=== PATIENT | male | born 1950 | race Caucasian/White ===

== ENCOUNTER 2025-01-27 07:41 | Observation (INO) ==
--- NOTE | 2025-01-01 11:33 | PAT Medication Instructions ---
Medication Instructions Date of Service January 01, 2025 Home Medications allopurinol 300 mg tablet 300 mg PO QAM cholecalciferol (vitamin D3) 125 mcg (5,000 unit) tablet (Vitamin D3) 125 mcg PO QAM icosapent ethyl 1 gram capsule (Vascepa) 1 g PO BID losartan 100 mg tablet 100 mg PO QAM magnesium chloride 71.5 mg (magnesium chloride) tablet,delayed release (Slow- Mag) 71.5 mg PO HS metformin 500 mg tablet 500 mg PO BID pravastatin 40 mg tablet 40 mg PO QAM ASK your prescriber and surgeon icosapent ethyl 1 gram capsule (Vascepa) 1 g PO BID DO NOT take the morning of surgery cholecalciferol (vitamin D3) 125 mcg (5,000 unit) tablet (Vitamin D3) 125 mcg PO QAM losartan 100 mg tablet 100 mg PO QAM metformin 500 mg tablet 500 mg PO BID Take morning of surgery With a small sip of water, OTHERWISE NOTHING TO EAT OR DRINK AFTER MIDNIGHT: allopurinol 300 mg tablet 300 mg PO QAM pravastatin 40 mg tablet 40 mg PO QAM Take evening before surgery magnesium chloride 71.5 mg (magnesium chloride) tablet,delayed release (Slow- Mag) 71.5 mg PO HS metformin 500 mg tablet 500 mg PO BID Other Notes If you have any questions please call us at [phone] or [phone] or [phone] or [phone]
--- NOTE | 2025-01-06 13:32 | Anesthesiology Consultation ---
Date of Service January 06, 2025 Assessment & Plan (1) Encounter for pre-operative examination: - check BSG am DOS. Outpatient joint assessment: Patient is currently scheduled for inpatient pathway. If re-evaluated and patient/surgeon requests outpatient pathway, patient is not an acceptable candidate for outpatient joint program from anesthesia standpoint pending surgeon's office assessment of pt motivation/support/completion of same day joint program preop requirements. Chart Review Chart Review: Acceptable Risk for Surgery and Patient NOT seen in Pre Admission Testing History Surgery Operation Date: 01/27/25 10:35 Proposed Procedures p Left Reversed Total Shoulder Arthroplasty, Biceps Tenodesis - Andrea Wilkinson MD Height/Weight Height: 5 ft 11 in Weight: 125.4 kg Allergies Allergy/AdvReac Type Severity Reaction Status Date / Time No Known Allergies Allergy Verified 12/25/24 09:59 Medications Home Medications Medication Instructions Recorded Confirmed Last Taken allopurinol 300 mg tablet 300 mg PO QAM 12/25/24 12/25/24 Unknown cholecalciferol (vitamin D3) 125 125 mcg PO QAM 12/25/24 12/25/24 Unknown mcg (5,000 unit) tablet (Vitamin D3) icosapent ethyl 1 gram capsule 1 g PO BID 12/25/24 12/25/24 Unknown (Vascepa) losartan 100 mg tablet 100 mg PO QAM 12/25/24 12/25/24 Unknown magnesium chloride 71.5 mg 71.5 mg PO HS 12/25/24 12/25/24 Unknown (magnesium chloride) tablet,delayed release (Slow-Mag) metformin 500 mg tablet 500 mg PO BID 12/25/24 12/25/24 Unknown pravastatin 40 mg tablet 40 mg PO QAM 12/25/24 12/25/24 Unknown aspirin 81 mg tablet 81 mg PO PRN Pain 01/06/25 Unknown ibuprofen 100 mg tablet 200 mg PO Q6H PRN Pain 01/06/25 01/06/25 Unknown Additional Notes: Patient was instructed and it was written on provided medication instructions to contact surgeon regarding aspirin and ibuprofen/Advil. He verbalized underst anding and denied additional questions, concerns or additional medications. Dr. Christie confirmed it is up to prescriber and surgeon regarding icosapent ethyl. Past Medical History Medical History (Updated 01/06/25 @ 13:38 by Ibis M. Onink, PA-C) Diabetes mellitus, type 2 NIDDM History of hypertension controlled, stable per pt Hx of gout Hx of hyperlipidemia Hypertriglyceridemia Incisional hernia "at area of cholecystectomy" Patient denies h/o stroke, seizures, heart attack, heart failure, blood clot s/DVTs or blood transfusions. Exercise / Class Metabolic Activity II 4-5 Yardwork/Stairs/Walk up hill (denies chest discomfort or shortness of breath with one flight of stairs) Past Surgical History Surgical History Hx of cardiac cath 1996, while in the [employer], no stents Hx of cholecystectomy (2018) open procedure "which is now herniated" Hx of nasal polypectomy "in his 20's, done in dr's office" [place] teeth extracted Past Anesthesia History No Hx of Anesthesia Complications and No Family Hx of Anesthesia Complications History of PONV No Hx of PONV and No Hx of Motion Sickness Social History Smoking Status: Never smoker Do You Dip or Chew Tobacco: No Hx Alcohol Use: No Hx Substance Use: No substance use type: does not use Review of Systems Patient denies chest pain, shortness of breath, dyspnea on exertion, snoring, witnessed apneas, reflux, fever, chills, cough, wheezing, or palpitations. Physical Exam Vital Signs Vitals BP 144/86 P 105 (Pt states that he was having increased left shoulder pain which significantly improved when he moved shoulder into lap-notes this is how he rests at home, states he is also nervous in clinical settings/regarding surgery today) TEMP 97.5 SP02 96% on RA RESP 17 Physical Patient resting comfortably in chair in no acute distress, alert and oriented, responding appropriately throughout visit Full cervical extension range of motion without pain TMD < 3 finger breadths Mallampati Score 3 Dentition: partial upper and lower dentures, denies chipped or loose teeth, caps/crowns, implants or bridges Lungs: normal respiratory effort. Good air movement, clear throughout to auscultation, no adventitious breath sounds Cardiac: regular rate and rhythm, no murmurs noted Carotid arteries: negative bruit bilat Lab Results Anesthesia Preop Results Results Anesthesia Widget: WBC 9.18 K/ul (4.8-10.8) 01/06/25 Hgb 14.5 g/dl (14.0-18.0) 01/06/25 Hct 43.4 % (42.0-52.0) 01/06/25 Plt 224 K/uL (130-400) 01/06/25 Na 139 mmol/L (136-145) 01/06/25 K 4.3 mmol/L (3.5-5.1) 01/06/25 Cl 104 mmol/L (98-107) 01/06/25 CO2 28 mmol/L (21-32) 01/06/25 BUN 16 mg/dl (6-23) 01/06/25 Creat 0.95 mg/dl (0.6-1.4) 01/06/25 Glucose Level 110 mg/dl (70-99(Fasting)) H 01/06/25 PT 10.4 Seconds (9.0-12.0) 01/06/25 PTT 25 Seconds (21-31) 01/06/25 INR 1.0 (0.9-1.1) 01/06/25 HA1c 6.5 % (4.5-5.6) H 01/06/25 Urine Color Yellow 01/06/25 Urine Appearance Clear (Clear) 01/06/25 Urine pH 5.0 (4.5-7.5) 01/06/25 Urine Specific [place] 1.024 (1.000-1.030) 01/06/25 Urine Protein 1+ (Negative) H 01/06/25 Urine Glucose (UA) Negative (Negative) 01/06/25 Urine Ketones Trace (Negative) H 01/06/25 Urine Blood Negative (Negative) 01/06/25 Urine Nitrite Negative (Negative) 01/06/25 Urine Bilirubin Negative (Negative) 01/06/25 Urine Urobilinogen Negative (Negative) 01/06/25 Urine Leukocyte Esterase Trace (Negative) H 01/06/25 Urine WBC (Auto) 0-5 /hpf (0-5) 01/06/25 Urine RBC (Auto) 0-2 /hpf (0-2) 01/06/25 Urine Hyaline Casts (Auto) 0-2 /lpf (0-2) 01/06/25 Urine Epithelial Cells (Auto) 0-2 /hpf (0-2) 01/06/25 Urine Bacteria (Auto) None Seen (None Seen) 01/06/25 Blood Type B Positive 01/06/25 Antibody Screen NEGATIVE 01/06/25 Testing Electrocardiogram Date: 01/06/25 Sinus tachycardia, rate 104 bpm Chest X-Ray Date: 01/06/25 1. No acute findings. 2. Mild elevation of the right hemidiaphragm.
--- NOTE | 2025-01-25 19:43 | History & Physical Report ---
Date of Service January 25, 2025 Assessment & Plan (1) Osteoarthritis of left shoulder region: Plan: Severe end-stage glenohumeral osteoarthritis with partial tearing rotator cuff biceps instability biceps tendinopathy. Best option is to proceed with reverse total shoulder replacement biceps tenodesis. Osteoarthritis type: primary Qualified Code(s): M19.012 - Primary osteoarthritis, left shoulder (2) Rotator cuff tear, non-traumatic: Rotator cuff tear extent: incomplete Laterality: left Qualified Code(s): M75.112 - Incomplete rotator cuff tear or rupture of left shoulder, not specified as traumatic (3) Biceps tendinopathy: Laterality: left Qualified Code(s): M67.922 - Unspecified disorder of synovium and tendon, left upper arm History of Present Illness Chief Complaint: Chronic left shoulder pain Primary Care Provider: Sumi France MD Chronic progressive left shoulder pain and stiffness related to osteoarthritis and rotator cuff tendinopathy. Patient denies headaches, sweats, fevers, chills, double vision, blurred vision, cough, sore throat, dysphagia, chest pain, sob, wheezing, n/v/d/c, numbness, tingling, fatigue, urinary symptoms, mood disorders. ROS positive for heart catheterization Allergies Allergy/AdvReac Type Severity Reaction Status Date / Time No Known Allergies Allergy Verified 12/25/24 09:59 Home Medications Medication Instructions Recorded Confirmed Type allopurinol 300 mg tablet 300 mg PO QAM 12/25/24 12/25/24 History cholecalciferol (vitamin D3) 125 125 mcg PO QAM 12/25/24 12/25/24 History mcg (5,000 unit) tablet (Vitamin D3) icosapent ethyl 1 gram capsule 1 g PO BID 12/25/24 12/25/24 History (Vascepa) losartan 100 mg tablet 100 mg PO QAM 12/25/24 12/25/24 History magnesium chloride 71.5 mg 71.5 mg PO HS 12/25/24 12/25/24 History (magnesium chloride) tablet,delayed release (Slow-Mag) metformin 500 mg tablet 500 mg PO BID 12/25/24 12/25/24 History pravastatin 40 mg tablet 40 mg PO QAM 12/25/24 12/25/24 History aspirin 81 mg tablet 81 mg PO PRN Pain 01/06/25 History ibuprofen 100 mg tablet 200 mg PO Q6H PRN Pain 01/06/25 01/06/25 History Past Med/Surg History Problem List (Updated 01/25/25 @ 19:42 by Andrea Wilkinson MD) Biceps tendinopathy Rotator cuff tear, non-traumatic Osteoarthritis of left shoulder region Encounter for pre-operative examination Medical History Incisional hernia "at area of cholecystectomy" Diabetes mellitus, type 2 NIDDM History of hypertension controlled, stable per pt Hypertriglyceridemia Hx of hyperlipidemia Hx of gout Surgical History Hx of cholecystectomy (2018) open procedure "which is now herniated" Hx of nasal polypectomy "in his 20's, done in dr's office" [place] teeth extracted Hx of cardiac cath 1996, while in the [employer], no stents Social History Smoking Status: Never smoker Second Hand Exposure: Yes (hx, none for 50 years); Do You Dip or Chew Tobacco: No; Tobacco Cessation Education Requested by Patient: No Hx Alcohol Use: No Hx Substance Use: No Preferred Language: [place] Communication Ability: Effective Tractor Expert Required: No Beliefs That Will Affect Care: None Current Living Situation: Alone Other Information That Helps Us Care for You: No Feels Safe at Home: Yes Safety Concerns: Feels Safe At This Time Assistive Devices: Glasses and Other Assistive Devices Comment: upper and lower partials Review of Systems All systems reviewed & are unremarkable except as noted in HPI & below Physical Exam Constitutional: WD/WN, vitals as above Respiratory: normal respiratory effort; no respiratory distress Cardiovascular: Rate/Rhythm: regular rate and regular rhythm Musculoskeletal: Left shoulder tenderness anterior glenoid and biceps glenohumeral crepitation with range of motion. Positive Speed, Yergason, Neer test. Painful range of motion. Range of motion 130 degrees flexion passively but only 40 degrees actively. 40 degrees active abduction and 90 degrees of passive abduction. Strength external rotation 4+/5 abduction 3+ to 4-/5, flexion 3+4-/5 distal neurocirculatory exam otherwise intact. Skin: no rashes, warm and dry Neurologic: normal touch/pain/proprioception Psychiatric: A+Ox3, euthymic affect Results & Data Diagnostic Findings MRI and x-rays demonstrate severe end-stage glenohumeral osteoarthritis with MRI demonstrating biceps dislocation through split type and complete tear of the subscapularis with subscapularis tendinopathy and partial tearing of supraspinatus with some tendinopathy as well. [id number] glenohumeral joint with concentric type A wear pattern.
[~2025-01-27 07:41] MED LIST: BUPIVACAINE 0.5 % 5 MG/1 ML PF 10ML VIAL ONE
[2025-01-27] MEDS: GABAPENTIN 300 MG CAP PO SCH (08:44)
[2025-01-27] MEDS: METOCLOPRAMIDE HCL 10 MG TABLET PO SCH (08:44)
[2025-01-27] MEDS: LR 15ML/HR IV SCH (08:44)
[2025-01-27] MEDS: CeleBREX 200 MG CAP PO SCH (08:44)
[2025-01-27] MEDS: ACETAMINOPHEN 500 MG TAB PO SCH ×2 (08:44→16:48)
[2025-01-27] MEDS: FAMOTIDINE 20 MG TAB PO SCH (08:44)
[2025-01-27] MEDS: LR 60ML/HR IV SCH (08:45)
[2025-01-27] MEDS ORDERED: ATROPINE SULFATE 0.1 MG/ML 10ML SYR IV PRN (09:07)
[2025-01-27] MEDS ORDERED: HYDROmorphone INJ 2 MG/ML SYR/VIAL IV PRN (09:07)
[2025-01-27] MEDS ORDERED: HYDROmorphone INJ 1 MG/ML SYRINGE IV PRN (09:07)
[2025-01-27] MEDS ORDERED: ONDANSETRON INJ 2 MG/ML 2 ML VIAL IV PRN ×2 (09:07→14:47)
[2025-01-27] MEDS ORDERED: ePHEDrine sulfate 50 MG/ML AMP IV PRN (09:07)
[2025-01-27] MEDS ORDERED: fentaNYL citrate PF 100 MCG/2 ML VIAL IV PRN (09:07)
--- NOTE | 2025-01-27 09:09 | Anesthesiology Consultation ---
Date of Service January 27, 2025 Assessment & Plan Chart Review Chart Review: Acceptable Risk for Surgery Consults Requested none ASA ASA3 Proposed Anesthesia Anesthesia Type: General Regional Regional Laterality: Left Site: Interscalene History Surgery Operation Date: 01/27/25 09:50 Proposed Procedures p Left Reverse Total Shoulder Arthroplasty, Biceps Tenodesis - Andrea Wilkinson MD Height/Weight Height: 5 ft 11 in Weight: 123 kg Allergies Allergy/AdvReac Type Severity Reaction Status Date / Time No Known Allergies Allergy Verified 01/27/25 08:15 Medications Home Medications Medication Instructions Recorded Confirmed Last Taken allopurinol 300 mg tablet 300 mg PO QAM 12/25/24 01/27/25 01/25/25 cholecalciferol (vitamin D3) 125 125 mcg PO QAM 12/25/24 01/27/25 01/25/25 mcg (5,000 unit) tablet (Vitamin D3) icosapent ethyl 1 gram capsule 1 g PO BID 12/25/24 01/27/25 01/25/25 (Vascepa) losartan 100 mg tablet 100 mg PO QAM 12/25/24 01/27/25 01/25/25 magnesium chloride 71.5 mg 71.5 mg PO HS 12/25/24 01/27/25 01/25/25 (magnesium chloride) tablet,delayed release (Slow-Mag) metformin 500 mg tablet 500 mg PO BID 12/25/24 01/27/25 01/25/25 pravastatin 40 mg tablet 40 mg PO QAM 12/25/24 01/27/25 01/25/25 aspirin 81 mg tablet 81 mg PO PRN Pain 01/06/25 01/20/25 ibuprofen 100 mg tablet 200 mg PO Q6H PRN Pain 01/06/25 01/27/25 01/20/25 Active Medications Generic Name Dose Route Start Last Admin Trade Name Freq PRN Reason Stop Dose Admin Acetaminophen 1,000 mg 01/27/25 06:00 01/27/25 08:44 Acetaminophen 500 Mg Tab PO 01/27/25 18:00 1,000 mg PREOP TIM Administration Celecoxib 200 mg 01/27/25 06:00 01/27/25 08:44 Celebrex 200 Mg Cap PO 01/27/25 18:00 200 mg PREOP TIM Administration Famotidine 20 mg 01/27/25 06:00 01/27/25 08:44 Famotidine 20 Mg Tab PO 01/27/25 18:00 20 mg PREOP TIM Administration Gabapentin 300 mg 01/27/25 06:00 01/27/25 08:44 Gabapentin 300 Mg Cap PO 01/27/25 18:00 300 mg PREOP TIM Administration Lactated Ringer's 1,000 mls @ 15 mls/hr 01/27/25 06:00 01/27/25 08:44 Lr IV 01/28/25 05:59 15 mls/hr .Q24H TIM Administration Lactated Ringer's 1,000 mls @ 60 mls/hr 01/27/25 06:00 01/27/25 08:45 Lr IV 01/27/25 22:39 Not Given .[id number] TIM Metoclopramide HCl 10 mg 01/27/25 06:00 01/27/25 08:44 Metoclopramide Hcl 10 Mg Tablet PO 01/27/25 18:00 10 mg PREOP TIM Administration NPO Date Last Intake of Fluids: 01/26/25 Time Last Intake of Fluids: 22:00 Date Last Intake of Solids: 01/26/25 Time Last Intake of Solids: 22:00 Past Medical History Medical History Incisional hernia "at area of cholecystectomy" Diabetes mellitus, type 2 NIDDM History of hypertension controlled, stable per pt Hypertriglyceridemia Hx of hyperlipidemia Hx of gout Exercise / Class Metabolic Activity III < 4 Walking/Shop/Light housework Past Surgical History Surgical History Hx of cholecystectomy (2018) open procedure "which is now herniated" Hx of nasal polypectomy "in his 20's, done in dr's office" [place] teeth extracted Hx of cardiac cath 1996, while in the [employer], no stents Past Anesthesia History No Hx of Anesthesia Complications History of PONV No Hx of PONV Social History Smoking Status: Never smoker Do You Dip or Chew Tobacco: No Hx Alcohol Use: No Hx Substance Use: No substance use type: does not use Physical Exam Vital Signs Last Vital Signs Temp 36.6 C 01/27/25 07:38 Pulse 112 H 01/27/25 07:38 Resp 20 01/27/25 07:38 BP 165/100 H 01/27/25 07:38 Pulse Ox 94 01/27/25 07:38 O2 Del Method Room Air 01/27/25 07:38 Constitutional + obese; no acute distress ENMT Mouth: + TMJ abnormality and + dentures (Partial denture out ) Thyromental Distance: > or= 3.5 Finger Breadths Mallampati Class: II Neck + short neck and + thick neck Supraclavicular adipose tissue bilaterally Respiratory normal respiratory effort Auscultation: lungs clear to auscultation bilaterally and + diminished lung sounds (Distant ) Cardiovascular Rate/Rhythm: regular rate and regular rhythm Neurologic moves all extremities Psychiatric Orientation: alert and oriented x 3 Testing Laboratory Results 01/27/25 08:46 POC Glucose 127 H Electrocardiogram Date: 01/06/25 Sinus tachycardia, rate 104 bpm Chest X-Ray Date: 01/06/25 1. No acute findings. 2. Mild elevation of the right hemidiaphragm.
[2025-01-27] MEDS ORDERED: PROPOFOL IV EMULSION 10 MG/ML 20 ML VIAL IV ONE (09:17)
[2025-01-27] MEDS ORDERED: ONDANSETRON INJ 2 MG/ML 2 ML VIAL ONE (09:17)
[2025-01-27] MEDS ORDERED: LIDOCAINE 2% 2 ML VIAL/AMP(20MG/ML) INFIL ONE (09:17)
[2025-01-27] MEDS ORDERED: ROCURONIUM BROMIDE 10 MG/ML 5 ML VIAL IV ONE (09:17)
[2025-01-27] MEDS ORDERED: MIDAZOLAM HCL 1 MG/ML 2ML VIAL ONE (09:18)
[2025-01-27] MEDS ORDERED: fentaNYL citrate PF 100 MCG/2 ML VIAL ONE ×2 (09:18→13:41)
[2025-01-27] MEDS ORDERED: VASOPRESSIN 20 UNIT/ML VIAL ONE (09:26)
--- NOTE | 2025-01-27 10:39 | History & Physical Bridge Note ---
Date of Service January 27, 2025 History & Physical Bridge Note I have examined the patient, reviewed the History & Physical and in the interval since the performance of the History & Physical I have noted the following changes of clinical significance: no changes noted
[2025-01-27] MEDS: TRANEXAMIC ACID 1,000 MG **IV Pre-op IV SCH (10:41)
[2025-01-27] MEDS: ceFAZolin 3000MG 3,000 MG/72.5 ML BAG IV SCH (11:08)
[2025-01-27] MEDS ORDERED: METOPROLOL TARTRATE 1 MG/ML VIAL IV ONE (11:39)
[2025-01-27] MEDS ORDERED: PHENYLEPHRINE 100MCG/ML 5ML SYR ONE (11:58)
[2025-01-27] MEDS ORDERED: SUGAMMADEX SODIUM 200 MG/2 ML VIAL IV ONE ×2 (12:47→12:58)
[2025-01-27] MEDS: TRANEXAMIC ACID 1,000 MG **IV Intra-op IV SCH (13:18)
--- NOTE | 2025-01-27 13:45 | Operative Report ---
Post Operative Report Pre & Post Diagnosis Operation Date: 01/27/25 09:50 Pre-Op Diagnosis: Left Shoulder glenohumeral joint osteoarthritis, partial tear subscapularis with dislocation biceps tendon and rotator cuff tendinopathy. Post-Op Diagnosis: Left shoulder glenohumeral joint osteoarthritis, partial tear subscapularis with dislocation biceps tendon and rotator cuff tendinopathy. I identified the patient and participated in the time-out.: Yes Procedure Operation Date: 01/27/25 09:50 Actual Procedures p Left Reverse Total Shoulder Arthroplasty, Biceps Tenodesis(Left) - Andrea Wilkinson MD Surgeon Andrea Wilkinson MD Pattern Wheel Maker Diego MARTINEZ Estimated Blood Loss 100 Findings Consistent with Post-Op Diagnosis Specimens Humeral head cut Drains 2 Hemovac Anesthesia Type General Regional Disposition Disposition: Recovery Room Indications 74-year-old male with chronic progressive osteoarthritis in his left shoulder glenohumeral joint [id number] grade 4 osteoarthritis with concentric type A wear pattern with tearing of the upper subscapularis tendon with dislocation of the biceps tendon and some generalized rotator cuff tendinopathy Description of Procedure Patient was placed placed under regional block and general anesthetic. The left upper extremity had a towel roll placed on the medial border of the scapula and translated to the side of the bed so it could be manipulated off of the bed as necessary. A foam headrest was placed and protective eyewear was placed. Lower extremities were well-padded. Patient was positioned in a beach chair position approximately 50 degrees. Shoulder exam demonstrated moderate obesity. Patient had significant abdominal obesity. The left shoulder had crepitation and restricted range of motion consistent with glenohumeral osteoarthritis. Range of motion 130 degrees flexion, 90 degrees abduction, 40 degrees external and internal rotation. The left upper extremity was prepped and draped in sterile fashion. A deltopectoral approach was performed with a longitudinal incision in a deltopectoral interval. The skin was incised sharply and the subcutaneous flaps were elevated. The cephalic vein was dissected out and retracted laterally with the deltoid. The clavipectoral fascia was divided at the lateral margin of the conjoined tendon and extended up to the CA ligament. A self-omid ining retractor was placed. Biceps findings demonstrated marked hemorrhagic biceps tenosynovitis and dislocated biceps tendon throughout subscapularis tendon tear upper subscapularis.. Biceps tendon was tenodesed to the pectoralis with whipstitch and [id number] #2 FiberWire sutures. The chronic tenosynovitis was resected and the proximal biceps resected up to the groove.. The circumflex vessels were tied off with silk ties and divided laterally. The subscapularis muscle fibers were at the level of the circumflex vessels dissection was taken down to the capsule and a Kitner elevator was used to release the inferior fibers of the capsule protecting the axillary nerve inferiorly. A blunt Hohmann retractors were placed between the inferior located axillary nerve and the capsule. This was verified with a tug test. The rotator was opened up and extended down to the glenoid. The subscapularis was taken down with a sub-periosteal peel and then subperiosteally along the inferior capsule exposing the inferior humeral osteophytes. These demonstrated moderately large osteophytes from posterior through the inferior through lateral and osteophytes in the bicipital groove and lesser tuberosity area.. The osteophytes were resected with an artist chisel and rongeur. The humeral head findings demonstrated multiple subchondral cystic changes grade 4 osteoarthritis exposed bone on the humeral head. After the osteophytes were resected humeral head was retracted posterior to the glenoid with a Fukuda retractor. The glenoid findings demonstrated grade 4 eburnated bone with a large anterior- inferior osteophyte on the glenoid. The labrum was resected and the biceps tendon resected. A 360 degree release of the subscapularis was performed. Appropriate releases were performed about the glenoid. Subperiosteal release with electrocautery on the glenoid anterior and inferior and also utilizing a small Moss elevator to perform that release including the posterior and inferior capsule released with a Moss elevator.. Upon completion of the releases the humeral head was reexposed with retractors. I released the supraspinatus and resected the supraspinatus tendon leaving the infraspinatus and teres minor intact. The centering awl was used followed by the sequential broaches up to a 5B long ascend flex stem from [employer]. The cut protector was placed and then the humerus was retracted posterior to the glenoid using a Tornier type retractor a sharp Hohmann and anteriorly a Bankart retractor. Glenoid was fully exposed well. The glenoid was sized for a 29 baseplate. The 29 guide was placed and 10 degrees inferior tilt and the drill hole was made the reamer was used and the central hole was widened for the post. After irrigation and placing small amount of bone graft in the superior cystic area with bone graft harvested from the humeral head the 29 mm aequalis standard post baseplate was impacted into position with good press-fit. This was transf ixed with anterior and posterior compression screws and a superior and inferior locking screws. There was excellent fixation. The fan reamer for the 42 mm centered glenoid sphere was utilized and after irrigating out all bone debris and drying the glenoid the 42/29 centered sphere was impacted into position and the security screw was tightened. Implant was stable on testing. Attention was then taken back to the humerus and the cut protector was taken off the +0 high offset trial tray was placed and the trial reversed flex inserts were placed and the +9 was the appropriate fit. The trial was then removed and the canal irrigated and 3 drill holes were made along the lateral surface of the lesser tuberosity spanning the distance of the subscapularis attachment and 3 transosseous #5 FiberWire sutures were placed for repair of the subscapularis. The final implant was assembled which was the 5B long ascend flex stem assembled to the +0 high offset reverse tray and the 42/+9 mm reversed flex polyethylene insert. This was impacted into the humerus with good press-fit. This was reduced to the glenoid sphere. The shoulder was taken through range of motion and stability was assessed and the shoulder was stable. There was no shuck. after copious irrigation the subscapularis was repaired with the #5 FiberWire sutures using Ajith-Mark Anthony suture technique and lateral row soft tissue repair with #2 FiberWire [id number] sutures. The pectoralis was repaired with saozpp-hu-ynnay #2 FiberWire passing the suture again through the biceps tendon to reinforce the tenodesis. Range of motion was assessed demonstrating 135 degrees of flexion 90 degrees abduction and 50 degrees external rotation and 90 degrees internal rotation without any tension on repair. 3-minute Betadine soak was performed. The wound was then copiously irrigated and 2 Hemovac drains were placed brought out laterally. The deltopectoral interval was repaired with momaoy-yp-qwvmo #1 Vicryl sutures and the subcutaneous tissues were closed into 2-0 Vicryl sutures and skin closed with amanda and a Silverlon dressing was applied and a shoulder immobilizer. The patient tolerated the procedure well. Diego MARTINEZ my physician visitor information assistant assisted in the procedure with arm positioning soft tissue retraction instrument management suture management and performed the subcutaneous and skin closure dressings and shoulder immobilizer application and will participate in the postop care the patient. I attest to the content of the Intraoperative Record and any orders documented therein. Any exceptions are noted below.
--- NOTE | 2025-01-27 14:13 | XRay Report ---
XR shoulder LT min 2V routine CLINICAL HISTORY: Post shoulder surgery COMPARISON: None FINDINGS: Left shoulder prosthesis shows no hardware complication. There is expected soft tissue gas . Skin amanda and postoperative drain are present. IMPRESSION: Unremarkable postoperative exam. ACT 112: Negative or not required by law. Electronically signed by: Jose Armando Steiner M.D. 01/27/2025 2:12 PM
[2025-01-27] MEDS ORDERED: ALUMINUM/MAGNESIUM SUSP 30 ML UDC PO PRN (14:47)
[2025-01-27] MEDS ORDERED: METOCLOPRAMIDE HCL INJ 5 MG/ML 2 ML VIAL IV PRN (14:47)
[2025-01-27] MEDS ORDERED: KETOROLAC TROMETHAMINE 15 MG/ML VIAL IV PRN (14:47)
[2025-01-27] MEDS ORDERED: MAGNESIUM HYDROXIDE SUSP 30 ML UDC PO PRN (14:47)
[2025-01-27] MEDS ORDERED: HYDROmorphone INJ 0.5 MG/0.5 ML SYR IV PRN (14:47)
[2025-01-27] MEDS ORDERED: NALOXONE HCL 0.4 MG/1 ML VIAL/CARP IV PRN (14:47)
[2025-01-27] MEDS ORDERED: bisacodyL 10 MG SUPP PR PRN (14:47)
[2025-01-27] MEDS ORDERED: oxyCODONE HCL IR 5 MG TAB (IMMEDIATE RELEASE) PO PRN (14:47)
[2025-01-27] MEDS ORDERED: PHARMACY GLYCEMIC MGMT CONSULT PRN (14:47)
[2025-01-27] MEDS ORDERED: diphenhydrAMINE Capsule 25 MG CAP PO PRN (14:47)
[2025-01-27] MEDS ORDERED: TAMSULOSIN HCL 0.4 MG CAP PO PRN (14:47)
--- NOTE | 2025-01-27 14:57 | Anesthesiology Progress Note ---
Date of Service January 27, 2025 Anesthesia Post Procedure Vital Signs Vital Signs: Temp Pulse Pulse Resp BP Pulse Ox O2 Del Method 01/27/25 14:54 36.5 C 105 H 18 118/83 93 Nasal Cannula 01/27/25 14:35 108 H 20 125/93 94 Nasal Cannula 01/27/25 14:25 37.1 C 106 H 19 127/84 92 Nasal Cannula 01/27/25 14:20 107 H 20 122/91 91 Room Air 01/27/25 14:10 104 H 20 126/90 94 Oxymask 01/27/25 14:00 102 H 19 130/89 94 Oxymask 01/27/25 13:54 36.3 C L 104 H 17 133/91 91 Oxymask 01/27/25 07:38 36.6 C 112 H 20 165/100 H 94 Room Air O2 Flow Rate 01/27/25 14:54 2 01/27/25 14:35 2 01/27/25 14:25 2 01/27/25 14:20 0 01/27/25 14:10 4 01/27/25 14:00 4 01/27/25 13:54 4 01/27/25 07:38 Transfer of Care Handoff Completed per policy Notes Mental Status: alert / awake / arousable Patient Amnestic to Procedure: Yes Nausea / Vomiting: adequately controlled Pain: adequately controlled Airway Patency, RR, SpO2: stable & adequate BP & HR: stable & adequate Hydration State: stable & adequate Neuraxial Anesthesia: was administered and sensory block is resolving Anesthetic Complications: no major complications apparent and Pt Satisfied with anesthetic care Notes: Left arm - block in full effect
[2025-01-27] MEDS: BUPIVACAINE LIPOSOME 1.3% 133 MG/10 ML VIAL ONE (14:59)
[2025-01-27] MEDS: SODIUM CHLORIDE 0.9% 1,000 ML IV SCH (15:02)
--- NOTE | 2025-01-27 15:10 | Pharmacy Report ---
Pharmacy Glycemic Short Note 2 - Date of Service January 27, 2025 - Glycemic Short BSG Results (Last 24 hours): 01/27/25 01/27/25 08:46 13:57 POC Glucose 127 H 128 H OUTPATIENT ANTIDIABETIC REGIMEN: * Metformin 500 mg BID * A1c 6.5% 01/06/25 ASSESSMENT: * Patient admitted s/p left reverse should arthroplasty, pre-op BSG 127 mg/dL, post-op 128 mg/dL * Will hold on basal for now, begin weight stress 1 (adjusted body weight) novolog parameters * Dex 10 mg IV scheduled for AM tomorrow- parameters may need tightened at that time PLAN FOR INPATIENT GLYCEMIC CONTROL: * Hold outpatient oral diabetes medications * Basal insulin * hold for now * Bolus insulin * NovoLog per scale ACHS or Q6hrs while NPO * Goal Range: Low 110 mg/dL - High 140 mg/dL * Correction Factor: 45 mg/dL/unit * Nutritional / Prandial insulin per carb ratio of 1 unit per 15 grams CHO consumed
--- NOTE | 2025-01-27 15:11 | Hospitalist Consultation ---
Date of Consultation January 27, 2025 Assessment & Plan (1) Tachycardia: (2) History of hypertension: (3) Diabetes mellitus, type 2: (4) Hx of hyperlipidemia: (5) Hx of gout: Plan Mat is a 74M with a PMHx of gout, DMT2, HTN, and HLD who presents for elective surgery with Dr. Wilkinson. Hospital Medicine consulted for medical management. #Tachycardia This is mild and has been persistent. Sounds regular. Preop xray with ST in December. Denies palpitations. Will add TSH to AM labs #HTN Hold losartan - pending AM labs #DM Home meds: Metformin - HELD continue SSI #Shoulder Surgery S/p Left reverse total shoulder arthroplasty with Dr. Wilkinson 01/27 pain control /abx/ dvt proh/dispo planning per primary team Requiring oxygen post op - encourage IS, wean O2 as able, baseline is room air AM CBC and BMP #Gout - continue allopurinol #HLD - continue statin Thank you for allowing us to participate in the care of this patient, please reach out with any questions or concerns. Medicine will continue to follow. Supervising Physician Co-Signing Physician Notes Attending Attestation & Consult Note: Pt seen/examined, chart reviewed, care plan d/w MICHELLE Washburn. I agree w/ the bruce components of her consult documentation. 74yo male with h/o HTN, T2DM, hyperlipidemia, gout, and chronic OA of left shoulder who who presented today for elective left reverse total shoulder replacement by Dr Wilkinson. I saw him post-op on the ortho floor. Resting comfortably. He finally was able to void about 400cc of urine this afternoon. Voices concerns about his living situation - lives alone in [place] and does not have family readily available to help him. Asks about rehab post-discharge. PMH/PSH/allergies/meds/sochx - reviewed VSS except tachycardic, HR 100-110 gen - History of Present Illness Reason for Consultation: medical management Requesting Physician: Dr. Wilkinson Attending Physician: Andrea Wilkinson MD History of Present Illness Mta is a 74M with a PMHx of gout, DMT2, HTn, and HLD who presents for elective surgery with Dr. Wilkinson. Seen post operatively in room 304. Feeling tired and sore. Has some tingling down both arms. not passing gas yet. reports he is trying to "work up the courage to pee" denies O2 use at home, no cpap does not take baby aspirin daily Allergies Allergy/AdvReac Type Severity Reaction Status Date / Time No Known Allergies Allergy Verified 01/27/25 08:15 Home Medications Medication Instructions Recorded Confirmed Type allopurinol 300 mg tablet 300 mg PO QAM 12/25/24 01/27/25 History cholecalciferol (vitamin D3) 125 125 mcg PO QAM 12/25/24 01/27/25 History mcg (5,000 unit) tablet (Vitamin D3) icosapent ethyl 1 gram capsule 1 g PO BID 12/25/24 01/27/25 History (Vascepa) losartan 100 mg tablet 100 mg PO QAM 12/25/24 01/27/25 History magnesium chloride 71.5 mg 71.5 mg PO HS 12/25/24 01/27/25 History (magnesium chloride) tablet,delayed release (Slow-Mag) metformin 500 mg tablet 500 mg PO BID 12/25/24 01/27/25 History pravastatin 40 mg tablet 40 mg PO QAM 12/25/24 01/27/25 History aspirin 81 mg tablet 81 mg PO PRN Pain 01/06/25 History ibuprofen 100 mg tablet 200 mg PO Q6H PRN Pain 01/06/25 01/27/25 History acetaminophen 500 mg tablet 1,000 mg (2 x 500 mg) PO Q8H #90 01/27/25 Rx (Tylenol Extra Strength) tabs aspirin 81 mg tablet,delayed 81 mg PO BID #60 tabs 01/27/25 Rx release cefadroxil 500 mg capsule 500 mg PO Q12H 14 days #28 caps 01/27/25 Rx celecoxib 200 mg capsule (Celebrex) 200 mg PO Q12H #60 caps 01/27/25 Rx oxycodone 5 mg tablet 5 mg PO Q4H PRN pain #20 tabs 01/27/25 Rx Patient History Medical History Incisional hernia "at area of cholecystectomy" Diabetes mellitus, type 2 NIDDM History of hypertension controlled, stable per pt Hypertriglyceridemia Hx of hyperlipidemia Hx of gout Surgical History Hx of cholecystectomy (2018) open procedure "which is now herniated" Hx of nasal polypectomy "in his 20's, done in 's office" Geraldine teeth extracted Hx of cardiac cath 1996, while in the [employer], no stents Social History Smoking Status: Never smoker Second Hand Exposure: Yes (hx, none for 50 years); Do You Dip or Chew Tobacco: No; Tobacco Cessation Education Requested by Patient: No Hx Alcohol Use: No Hx Substance Use: No Preferred Language: Lao Communication Ability: Effective Mental Health Case Manager Required: No Beliefs That Will Affect Care: None Current Living Situation: Alone Other Information That Helps Us Care for You: No Feels Safe at Home: Yes Safety Concerns: Feels Safe At This Time Assistive Devices: Glasses and Other Assistive Devices Comment: upper and lower partials Review of Systems Review of Systems: All systems reviewed & are unremarkable except as noted in Subjective Physical Exam Physical Exam: General: NAD, VS as above Resp: normal respiratory effort, lungs diminished - on 2L NC 93% CV: tachycardic but regular, no murmur, Abd: normal bowel sounds, non tender, no hepatosplenomegaly Extremities: left sling in place, able to wiggle finger, skin is warm Neuro: A&O x3, Skin: intact, no lesions noted Results & Data Results & Data Vital Signs (Past 12 Hours) Vital Signs Temp Pulse Pulse Resp BP Pulse Ox O2 Del Method 01/27/25 14:54 97.7 F 105 H 18 118/83 93 Nasal Cannula 01/27/25 14:35 108 H 20 125/93 94 Nasal Cannula 01/27/25 14:25 98.8 F 106 H 19 127/84 92 Nasal Cannula 01/27/25 14:20 107 H 20 122/91 91 Room Air 01/27/25 14:10 104 H 20 126/90 94 Oxymask 01/27/25 14:00 102 H 19 130/89 94 Oxymask 01/27/25 13:54 97.3 F L 104 H 17 133/91 91 Oxymask 01/27/25 07:38 97.9 F 112 H 20 165/100 H 94 Room Air O2 Flow Rate 01/27/25 14:54 2 01/27/25 14:35 2 01/27/25 14:25 2 01/27/25 14:20 0 01/27/25 14:10 4 01/27/25 14:00 4 01/27/25 13:54 4 01/27/25 07:38 Laboratory Results POC glucose reviewed PG Care Time/CCT Total # of Minutes Spent Total Time Spent with Patient: Total time spent is greater than 50% in coordination of care (as documented) at patient's floor/unit and/or counseling patient: Coding Level of Care Code 53798 IN/OBS CONSULT LVL 3,45M Diagnoses Tachycardia R00.0 History of hypertension Z86.79 Diabetes mellitus, type 2 E11.9 Hx of hyperlipidemia Z86.39 Hx of gout Z87.39
[2025-01-27] MEDS ORDERED: GLUCOSE 10 TAB/TUBE PO PRN (15:15)
[2025-01-27] MEDS ORDERED: DEXTROSE 50% 50 ML SYRINGE IV PRN (15:15)
[2025-01-27] MEDS ORDERED: CARBOHYDRATES FOR HYPOGLYCEMIA PO PRN (15:15)
[2025-01-27] MEDS ORDERED: GLUCAGON FOR INJ 1 MG VIAL SQ PRN (15:15)
[2025-01-27] MEDS ORDERED: GLUCOSE 40% GEL 15 GM TUBE PO PRN (15:15)
[2025-01-27] MEDS ORDERED: KETOCONAZOLE 2% CR 15 GM TUBE EXT PRN (16:35)
[2025-01-27] MEDS: INSULIN ASPART PER UNIT CHARGE SC SCH (16:47)
[2025-01-27] MEDS: SENNA 8.6 MG TAB PO SCH (20:11)
[2025-01-27] MEDS: ceFAZolin 2000MG 2,000 MG/15 ML SYR IV SCH (20:11)
[2025-01-27] MEDS: DOCUSATE SODIUM 100 MG CAP PO SCH (20:11)
[2025-01-27] MEDS: COUGH DROP (SUGAR FREE) LOZ 24 LOZ/1 BOX BUCCAL ONE ×2 (20:11)
[2025-01-27] MEDS: MAGNESIUM CHLORIDE W/CALCIUM 64MG DELAYED REL TAB PO SCH (20:12)
[2025-01-27] MEDS: ASPIRIN 81 MG ECTAB PO SCH (20:12)
[2025-01-27] MEDS: TRANEXAMIC ACID / 0.7% NACL 1,000 MG/100 ML BAG IV SCH (20:23)
[2025-01-27] MEDS ORDERED: metFORMIN HCL 500 MG TAB PO SCH (21:00)
[2025-01-27] MEDS ORDERED: ICOSAPENT ETHYL 1 GM PO SCH (21:00)
[2025-01-28 06:11] LABS: Basophils # (auto) 0.05 K/uL (0.00-0.20); Basophils % (auto) 0.4 %; Eosinophils # (auto) 0.09 K/uL (0.00-0.50); Eosinophils % (auto) 0.7 %; Hematocrit (blood only) 41.2 % (42.0-52.0); Hemoglobin 13.8 g/dl (14.0-18.0); Immature Granulocytes # (auto) 0.06 K/uL (0.01-0.20); Immature Granulocytes % (auto) 0.5 %; Lymphocytes # (auto) 1.83 K/uL (1.20-3.40); Lymphocytes % (auto) 15.1 %; Mean Corpuscular Hgb Conc 33.5 g/dL (32.0-36.0); Mean Corpuscular Volume 86.6 fL (80.0-100.0); Mean Platelet Volume 9.9 fL (9.4-12.4); Monocytes # (auto) 1.09 K/uL (0.11-0.59); Neutrophils # (auto) 8.97 K/uL (1.40-6.50); Neutrophils % (auto) 74.3 %; Platelet Count 200 K/uL (130-400); RDW Standard Deviation 50.4 fL (36.4-46.3); Red Blood Count 4.76 M/uL (4.70-6.10); White Blood Count 12.09 K/ul (4.8-10.8)
[2025-01-28 06:26] LABS: BUN Creatinine Ratio 14.4 (10-20); Calcium 8.8 mg/dl (8.6-10.3); Creatinine Clr Calc Pharmacy 81.9 ml/min; Potassium 4.1 mmol/L (3.5-5.1)
[2025-01-28 06:40] LABS: Thyroid Stimulating Hormone 0.614 uIu/ml (0.300-4.500)
[2025-01-28 07:38] VITALS: BP 110/73; PULSE 98; RESP 16; TEMP 97.9
[2025-01-28] MEDS: dexAMETHasone 10 MG in SYRINGE 0 ML IV SCH (08:02)
[2025-01-28] MEDS: MULTIVITAMIN TAB PO SCH (08:02)
[2025-01-28] MEDS: allopurinoL 300 MG TAB PO SCH (08:02)
[2025-01-28] MEDS: PRAVASTATIN SOD 40 MG TAB PO SCH (08:02)
[2025-01-28] MEDS: CHOLECALCIFEROL 125 MCG (5,000 UNITS) TAB PO SCH (08:02)
[2025-01-28] MEDS: LANTUS PER UNIT CHARGE SC ONE (08:13)
[2025-01-28] MEDS: LOSARTAN POTASSIUM 50 MG TAB PO SCH (08:18)
[2025-01-28 08:46] VITALS: O2SAT 94
--- NOTE | 2025-01-28 09:02 | Orthopedic Progress Note ---
Date of Service January 28, 2025 Assessment & Plan (1) Osteoarthritis of left shoulder region: Plan: Postop day 1 reverse total shoulder replacement biceps tenodesis. Patient doing well. Tachycardia decreasing labs are stable. Patient wants to consider rehab hospital but may require another hospital day stay for that. Patient has appearance of slightly having more effort to take breaths which could be related to his abdominal obesity in addition to nerve block residual effect but does not appear to be affecting his O2 sat currently. If medically cleared and patient able to go to rehab could potentially be discharged later today. 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 Best option is to proceed with reverse total shoulder replacement biceps tenodesis. (2) Rotator cuff tear, non-traumatic: (3) Biceps tendinopathy: Admission and Anticipated Discharge Date Admission Date: January 27, 2025 Subjective Patient feels well not having any pain. Review of Systems Review of Systems: No shortness of breath, no chest pain. Physical Exam Musculoskeletal: Shoulder exam demonstrates dressing is dry and intact no bleeding at all and drainage minimal from Hemovac and distal motor exam intact and circulation normal. Results & Data Vital Signs (Past 12 Hours) Vital Signs Temp Pulse Resp BP Pulse Ox O2 Del Method 01/28/25 07:36 36.6 C 98 H 16 110/73 94 Room Air 01/28/25 03:37 36.8 C 104 H 18 125/74 93 Room Air 01/27/25 22:32 36.4 C L 108 H 18 114/75 93 Room Air Laboratory Results Hemoglobin 13.8, hematocrit 41.2, BUN 15 creatinine 1.04 glucose 137 Diagnostic Findings Well aligned reverse shoulder replacement (1) Osteoarthritis of left shoulder region Osteoarthritis type: primary Qualified Code(s): M19.012 - Primary osteoarthritis, left shoulder (2) Rotator cuff tear, non-traumatic Rotator cuff tear extent: incomplete Laterality: left Qualified Code(s): M75.112 - Incomplete rotator cuff tear or rupture of left shoulder, not specified as traumatic (3) Biceps tendinopathy Laterality: left Qualified Code(s): M67.922 - Unspecified disorder of synovium and tendon, left upper arm
--- NOTE | 2025-01-28 11:21 | Hospitalist Progress Note ---
Date of Service January 28, 2025 Assessment & Plan (1) Tachycardia: (2) History of hypertension: (3) Diabetes mellitus, type 2: (4) Hx of hyperlipidemia: (5) Hx of gout: Plan Mat is a 74M with a PMHx of gout, DMT2, HTN, and HLD who presents for elective surgery with Dr. Wilkinson. Hospital Medicine consulted for medical management. #Tachycardia This is mild and has been persistent. Sounds regular. Preop EKG with Sinus Tach in December. Denies palpitations. TSH WNL - recommend outpatient echo. #HTN Continue losartan #DM Home meds: Metformin - HELD glycemic consult per primary team #Shoulder Surgery S/p Left reverse total shoulder arthroplasty with Dr. Wilkinson 01/27 pain control /abx/ dvt proh/dispo planning per primary team #Gout - continue allopurinol #HLD - continue statin Thank you for allowing us to participate in the care of this patient, please reach out with any questions or concerns. Medicine will sign off. Admission and Anticipated Discharge Date Admission Date: January 27, 2025 Subjective Patient seen sitting up in bed, feels well denies palpitations or feeling like his heart is racing. Thinks he met with a tissue technologist years ago but not recently. Review of Systems Review of Systems: All systems reviewed & are unremarkable except as noted in Subjective Physical Exam Physical Exam: General: NAD, VS as above Resp: normal respiratory effort, clear to asculation CV: rrr, no murmur, Abd: normal bowel sounds, non tender, no hepatosplenomegaly Extremities: left sling in place, able to wiggle finger, skin is warm Neuro: A&O x3, Skin: intact, no lesions noted Results & Data Results & Data Vital Signs (Past 12 Hours) Vital Signs Temp Pulse Resp BP Pulse Ox O2 Del Method 01/28/25 07:36 97.9 F 98 H 16 110/73 94 Room Air 01/28/25 03:37 98.2 F 104 H 18 125/74 93 Room Air Laboratory Results cbc and chemistry reviewed PG Care Time/CCT Total # of Minutes Spent Total Time Spent with Patient: Total time spent is greater than 50% in coordination of care (as documented) at patient's floor/unit and/or counseling patient: Coding Level of Care Code 58201 SUB INP/OBS CARE 2/35MIN Diagnoses Tachycardia R00.0 History of hypertension Z86.79 Diabetes mellitus, type 2 E11.9 Hx of hyperlipidemia Z86.39 Hx of gout Z87.39
--- NOTE | 2025-01-28 13:13 | Pharmacy Report ---
Pharmacy Glycemic Short Note 2 - Date of Service January 28, 2025 - Glycemic Short BSG Results (Last 24 hours): 01/27/25 01/27/25 01/27/25 13:57 16:36 20:33 Glucose POC Glucose 128 H 116 H 129 H 01/28/25 01/28/25 01/28/25 05:32 07:49 11:41 Glucose 137 H POC Glucose 126 H 162 H OUTPATIENT ANTIDIABETIC REGIMEN: * Metformin 500 mg BID * A1c 6.5% 01/06/25 ASSESSMENT: 01/28/25: * Blood sugars well-controlled postoperatively yesterday * Received one-time dose of IV dexamethasone this morning * Will start low-dose basal insulin and tighten Novolog w/ steroids 01/27/25: * Patient admitted s/p left reverse should arthroplasty, pre-op BSG 127 mg/dL, post-op 128 mg/dL * Will hold on basal for now, begin weight stress 1 (adjusted body weight) novolog parameters * Dex 10 mg IV scheduled for AM tomorrow- parameters may need tightened at that time PLAN FOR INPATIENT GLYCEMIC CONTROL: * Hold outpatient oral diabetes medications * Basal insulin * Lantus 10 units SC x 1 * Bolus insulin * NovoLog per scale ACHS or Q6hrs while NPO * Goal Range: Low 110 mg/dL - High 140 mg/dL * Correction Factor: 30 mg/dL/unit * Nutritional / Prandial insulin per carb ratio of 1 unit per 10 grams CHO consumed
--- NOTE | 2025-02-02 14:38 | Discharge Summary ---
Date of Service February 02, 2025 Admission HPI Per Admitting Provider Chronic progressive left shoulder pain and stiffness related to osteoarthritis and rotator cuff tendinopathy. Patient denies headaches, sweats, fevers, chills, double vision, blurred vision, cough, sore throat, dysphagia, chest pain, sob, wheezing, n/v/d/c, numbness, tingling, fatigue, urinary symptoms, mood disorders. ROS positive for heart catheterization Principal Diagnosis Left shoulder osteoarthritis Discharge Data Allergies Allergy/AdvReac Type Severity Reaction Status Date / Time No Known Allergies Allergy Verified 01/27/25 08:15 Consultations 01/21/25 15:36 Consult Hospitalist Routine Procedures Performed Operation Date: 01/27/25 09:50 Actual Procedures p Left Reverse Total Shoulder Arthroplasty, Biceps Tenodesis(Left) - Andrea Wilkinson MD Ordered Studies 01/27/25 05:00 US - OR guided needle placemen Routine Hospital Course (1) Osteoarthritis of left shoulder region: Postop day 1 reverse total shoulder replacement biceps tenodesis. Patient doing well. Tachycardia decreasing labs are stable. Patient wants to consider rehab hospital but may require another hospital day stay for that. Patient has appearance of slightly having more effort to take breaths which could be related to his abdominal obesity in addition to nerve block residual effect but does not appear to be affecting his O2 sat currently. If medically cleared and patient able to go to rehab could potentially be discharged later today. 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 Best option is to proceed with reverse total shoulder replacement biceps tenodesis. Total Time Total Time Spent Total Time Spent (In Minutes): 20 Discharge Plan Discharge Items Patient Disposition: Transfer Inpatient Rehab Fac Reason For Visit: Left Shoulder Degenerative Joint Disease, Dislocat Discharge Diagnosis: Left shoulder osteoarthritis Activity: Per Instructions section Non-emergency contact: Surgeon Call non-emergency contact if: your pain is not controlled, your pain is worsening and your temperature is above 101 Follow-up/Referrals: Sumi France MD [Primary Care Provider] - Diet: Regular Addtl Attending Provider Instructions: ACTIVITY RECOMMENDATIONS: SELF CARE INSTRUCTIONS AFTER TOTAL SHOULDER ARTHROPLASTY REVERSE A. You may do daily exercises as taught in physical therapy while in hospital. No lifting with the operative arm. B. You are to wear your sling/immobilizer at all times EXCEPT when performing your daily exercises and for hygiene purposes. C. You may perform dry, daily dressing changes. Please keep your incision covered. You may shower 48 hours after surgery. Do not apply soap or any ointment/lotions directly over incision. Do not soak incision in bath tub/swimming pool. D. You may use ice as needed to operative shoulder. E. You may resume previous diet. F. Silverlon: You have a Silverlon dressing on the surgical incision. It will remain in place for 7 days from the day of your surgery. After 7 days, you may remove the dressing, just as you would remove a bandaid. You may shower with the Silverlon dressing in place. However, if you notice any water within the dressing, the dressing should be removed. You may cover the incision with a dry dressing once the silverlon is removed if there is any drainage. SPECIAL CARE INSTRUCTIONS: VERY IMPORTANT TO READ AND REVIEW A. There are a few signs you need to watch for after you are home. Call [facility] at [phone] if you experience any of the followin. Increased severe shoulder pain. Some pain is expected especially when you exercise. 2. Increased swelling in you shoulder or arm; pain or swelling in either upper extremity. 3. Any fluid drainage from the incision. 4. Shortness of breath or chest pain. B. Please call [facility] at [phone] if you have any questions or concerns about your operation or recovery. C. Call your physician if: 1. Temperature is greater than 101 degrees (F). 2. Pain is not relieved by prescribed pain medications. 3. Increase drainage or redness from incision. 4. Unanswered questions or concerns. FOLLOW UP VISIT: Please call [facility] at [phone] to schedule a follow up appointment with Dr. Wilkinson or his PA in 12-14 days from your surgery date. Addtl [employer] Clerk Provider Instructions: Hospital Medicine - your heart rate was mildly but consistently elevated while you were here. We checked your thyroid levels and these were normal. Recommend outpatient echocardiogram (ultrasound of your heart) to ensure no issue. Pending Studies at Discharge: No Stand-Alone Forms: [facility] Skilled Items Patient informed of condition?: Yes DNR: No Discharge Level of Care: Acute rehab Communicable Disease: No Discharge Prognosis: Stable Lines: None Urinary Catheter: No Medications and DC Order Prescriptions: New celecoxib [Celebrex] 200 mg capsule 200 mg PO Q12H Qty: 60 0RF aspirin 81 mg tablet,delayed release (DR/EC) 81 mg PO BID Qty: 60 0RF cefadroxil 500 mg capsule 500 mg PO Q12H 14 Days Qty: 28 0RF oxycodone 5 mg tablet 5 mg PO Q4H PRN (Reason: pain) Qty: 20 0RF acetaminophen [Tylenol Extra Strength] 500 mg tablet 1,000 mg PO Q8H Qty: 90 0RF Continued metformin 500 mg Tablet 500 mg PO BID pravastatin 40 mg Tablet 40 mg PO QAM allopurinol 300 mg Tablet 300 mg PO QAM losartan 100 mg Tablet 100 mg PO QAM cholecalciferol (vitamin D3) [Vitamin D3] 125 mcg (5,000 unit) Tablet 125 mcg PO QAM Slow-Mag 71.5 mg Tablet,Delayed Release (Dr/Ec) 71.5 mg PO HS icosapent ethyl [Vascepa] 1 gram Capsule 1 g PO BID Discontinued ibuprofen 100 mg Tablet 200 mg PO Q6H PRN (Reason: Pain) aspirin 81 mg Tablet 81 mg PO PRN (Reason: Pain) Discharge Orders: Discharge Order (Routine); Ordered 01/28/25 Ordered By: Diego Reed/Other Patient Handouts: DVT Post Op Prevention Admission Data Admit Date/Time: 01/27/25 13:53 Attending Provider: Andrea Wilkinson Admit Provider: Andrea Wilkinson Primary Care Provider: Sumi France Other Providers: Jose Srivastava Other Interventions: Discharge Summary Assessment (RN) Last Done: 01/28/25 14:55
== END 2025-01-28 14:14 ==
LOC: ASU 07:41 → 3E 07:41
DX: Z79.84 Long term (current) use of oral hypoglycemic drugs; E66.9 Obesity, unspecified; Z79.899 Other long term (current) drug therapy; M19.012 Primary osteoarthritis, left shoulder; M67.922 Unspecified disorder of synovium and tendon, left upper arm; I10 Essential (primary) hypertension; M75.112 Incomplete rotator cuff tear or rupture of left shoulder, not specified as traumatic; Z79.82 Long term (current) use of aspirin; Z68.37 Body mass index [BMI] 37.0-37.9, adult; E11.9 Type 2 diabetes mellitus without complications